=== PATIENT | male | born 1985 | race Caucasian/White ===

== ENCOUNTER 2018-01-30 14:45 | Outpatient (CLI) | payer OTHER ==
--- NOTE | 2018-01-30 21:49 | MRI Report ---
EXAM: MRI LUMBAR SPINE WITHOUT CONTRAST EXAM DATE: 01/30/2018 03:00 PM. CLINICAL HISTORY: 32-year-old with 3 year history of low back pain and pain and numbness radiating do wn the left leg to toes COMPARISON: None. TECHNIQUE: Multiplanar, multisequence T1-weighted and fluid-sensitive sequences of the lumbar spine f rom T12 to S1 without contrast. Other: None. FINDINGS: Spinal Cord: The conus terminates at L1. The conus medullaris and cauda equina are unremarkable. Alignment: No scoliosis or spondylolisthesis. Bone Marrow: Five [id number] lumbar vertebral bodies are assumed. No gross fractures or bone les ions. No bone marrow edema. Disk Levels/Facets: T12-L1: Unremarkable. L1-L2: Unremarkable. L2-L3: Unremarkable. L3-L4: Mild loss of disk height. Small posterior disk bulge, ligamentum flavum thickening, pericholec ystic disease, and prominent dorsal patellar L4-L5. Mild spinal canal stenosis. Minimal right and mil d left neural foraminal narrowing. L4-L5: Mild loss of disk height. Slight posterior disk bulge and bilateral facet disease. No spinal c anal stenosis. Mild bilateral neural foraminal narrowing. L5-S1: Mild to moderate loss of disk height and disk desiccation. Small posterior disk bulge with sup erimposed left paracentral disk protrusion and annular fissure. Effacement of left lateral recess wit h contact of the traversing left S1 nerve root. Mild to moderate bilateral neural foraminal narrowing . Musculature: Normal. No edema or fatty atrophy. Other: The partially visualized retroperitoneum is unremarkable. IMPRESSION: 1. At L5-S1 there is a small left paracentral disk protrusion with annular fissure producing effaceme nt of the left lateral recess and contact of the traversing left S1 nerve root. There is mild to mode rate bilateral neural from narrowing. 2. At L4-L5 there is no spinal canal stenosis. Mild bilateral neural foraminal narrowing. 3. At L3-L4 there is mild spinal canal stenosis. There is minimal right and mild left neural foramina l narrowing. Comment: The following findings are so common in adults without low back pain that while we report th eir presence, they must be interpreted with caution and in the context of the clinical situation. (Re aravind Sahu et al, Spine 2001) Prevalence of findings in patients without low back pain: Disk degeneration (any evidence): 92% Disk desiccation/T2 signal loss: 83% Disk height loss: 56% Disk bulge: 64% Disk protrusion: 32% Annular tear/high intensity zone: 38% [facility] Referring Provider Line: [phone] SITE ID: [id number]
== END 2018-01-30 14:46 | disposition home or self-care (01) ==
LOC: DI 14:45
PROVIDERS: ATTEND Family Medicine
DX: M51.27 Other intervertebral disc displacement, lumbosacral region (principal); M51.37 Other intervertebral disc degeneration, lumbosacral region; M47.896 Other spondylosis, lumbar region; M51.36 Other intervertebral disc degeneration, lumbar region
CPT/HCPCS: 72148